=== PATIENT | male | born 1990 | race Two or more races ===

== ENCOUNTER 2017-06-24 11:04 | Emergency (ER) | payer OTHER ==
[~2017-06-24] VITALS: Ht 188 cm; Wt 81.6 kg
--- NOTE | ~2017-06-24 | CR210 ---
[facility] A Service of [facility] & [facility] RADIOLOGY TEXT RESULTS PATIENT: LISA SEGURA LOCATION: [facility] : 88 UNIT #: [id number] AGE: [address]: Vickie Jacob APRN SEX: M ORDER DR: [id number] [place], [place] [address] [id number] E MR#: [id number] Acc #: [id number] NAME: LISA SEGURA : 1990 SEX: M STUDY DATE/TIME: 06/24/2017 11:47 UNIT: [facility] ROOM: STUDY DESCRIPTION: CR Ribs Uni 2 View W PA Ch Lt Attending Physician: Vickie Jacob A.P.R.N. Ordering Physician: Ed Stan Blanca M.D. Primary Care Physician: No Primary Care Physician MEDICAL IMAGING REPORT This report is preliminary unless electronic signature is present EXAM Chest with left rib series, 06/24/2017, 1147 hours. CLINICAL HISTORY 26-year-old man who fell from a house frame 2 days ago complaining of left chest and rib pain since fall. COMPARISON None. FINDINGS Upright PA chest demonstrates normal cardiac, mediastinal and hilar contours. The lungs are well expanded and clear. There is no pleural effusion or pneumothorax. AP and oblique views of the left ribs demonstrate no rib fracture. IMPRESSION 1. Normal chest. 2. No left rib fracture, pleural effusion or pneumothorax. Dictated by... Meche Enriquez M.D. THIS IS AN ELECTRONICALLY VERIFIED REPORT Meche Enriquez M.D. at 06/25/2017 3:27 PM HOLDEN/holly TD: 06/24/2017 18:13 JOB #: [id number] MEDICAL IMAGING REPORT [facility] A Service of [facility] & [facility] RADIOLOGY TEXT RESULTS PATIENT: LISA SEGURA LOCATION: [facility] : 89 UNIT #: [id number] AGE: [address]: Vickie Jacob APRN SEX: M ORDER DR: Page 1 of 1 COPY
--- NOTE | ~2017-06-24 | CR230 ---
[facility] A Service of [facility] & [facility] RADIOLOGY TEXT RESULTS PATIENT: LISA SEGURA LOCATION: [facility] : 88 UNIT #: [id number] AGE: [address]: Vickie Jacob APRN SEX: M ORDER DR: [id number] [id number] [facility]. [place], [place] [address] [id number] E MR#: [id number] Acc #: [id number] NAME: LISA SEGURA : 1990 SEX: M STUDY DATE/TIME: 06/24/2017 UNIT: [facility] ROOM: STUDY DESCRIPTION: CR Shoulder Min 2 View Rt Attending Physician: Vickie Jacob A.P.R.N. Ordering Physician: [facility] MEDICAL IMAGING REPORT This report is preliminary unless electronic signature is present EXAM Right shoulder 3 views 06/24/2017 1147 hours HISTORY Patient fell from roof of house frame 2 days ago with bilateral shoulder pain. COMPARISON None. FINDINGS AP views in internal and external rotation and a scapula Y-view were performed. The bone density and range of motion is normal. There is no fracture or dislocation. IMPRESSION Negative right shoulder. Dictated by... Meche Enriquez M.D. THIS IS AN ELECTRONICALLY VERIFIED REPORT Meche Enriquez M.D. at 06/25/2017 3:27 PM HOLDEN/cyn TD: 06/24/2017 18:17 JOB #: [id number] MEDICAL IMAGING REPORT Page 1 of 1 COPY
--- NOTE | ~2017-06-24 | CR229 ---
[facility] A Service of [facility] RADIOLOGY TEXT RESULTS PATIENT: LISA SEGURA LOCATION: [facility] : 88 UNIT #: [id number] AGE: [address]: Vickie Jacob APRN SEX: M ORDER DR: [id number] [facility] [address]. [place], [place] [address] [id number] E MR#: [id number] Acc #: [id number] NAME: LISA SEGURA : 1990 SEX: M STUDY DATE/TIME: 06/24/2017 11:47 UNIT: [facility] ROOM: STUDY DESCRIPTION: CR Shoulder Min 2 View Lt Attending Physician: Vickie Jacob A.P.R.N. Ordering Physician: Ed Stan Blanca M.D. Primary Care Physician: No Primary Care Physician MEDICAL IMAGING REPORT This report is preliminary unless electronic signature is present EXAM Left shoulder, 3 views; 06/24/2017, 1147 hours. CLINICAL HISTORY Patient fell from a roof of a house frame 2 days ago, left shoulder pain since fall. COMPARISON None. FINDINGS There is a subtle lucency at the greater tuberosity laterally which could represent a nondisplaced fracture. This is not seen similarly on the right side. The glenohumeral joint and acromioclavicular joint are normal. IMPRESSION There is a subtle lucency obliquely oriented through the greater tuberosity which could represent a nondisplaced fracture. This could also be incomplete. This is asymmetric from the appearance of the greater tuberosity on the right side. No prior studies are available for comparison. Dictated by... Meche Enriquez M.D. THIS IS AN ELECTRONICALLY VERIFIED REPORT Meche Enriquez M.D. at 06/25/2017 3:27 PM Jaya TD: 06/24/2017 18:22 JOB #: [id number] [facility] A Service [facility] RADIOLOGY TEXT RESULTS PATIENT: LISA SEGURA LOCATION: [facility] #: [id number] : [birth year] UNIT #: [id number] AGE: [address]: Vickie Jacob APRN SEX: M ORDER DR: MEDICAL IMAGING REPORT Page 1 of 1 COPY
== END 2017-06-24 13:50 | disposition home or self-care (01) ==
LOC: CFTX 11:04 → CED 11:04 → CFTX 12:14
DX: S42.92XA Fracture of left shoulder girdle, part unspecified, initial encounter for closed fracture (principal); S20.212A Contusion of left front wall of thorax, initial encounter; S40.011A Contusion of right shoulder, initial encounter; W13.2XXA Fall from, out of or through roof, initial encounter; Y92.69 Other specified industrial and construction area as the place of occurrence of the external cause; Y99.0 Civilian activity done for income or pay
CPT/HCPCS: 71101; 73030; 99283